=== PATIENT | female | born 1980 | race Caucasian/White ===

== ENCOUNTER 2017-10-28 16:48 | Emergency (ER) | payer OTHER, SELFPAY ==
[2017-10-28] VITALS (8 sets, daily range): BP systolic 135–179; BP diastolic 95–125; PULSE 71–91; RESP 12–18; TEMP 36.8; O2SAT 96–100; BMI 29.2
[2017-10-28 17:14] LABS: Absolute Lymphocyte Count 2.18 X10^3/ul (0.83-4.51); Basophil# 0.02 X10^3/uL; Basophil% 0.2 % (0-1); Eosinophil# 0.19 X10^3/uL; Eosinophils% 1.7 % (0-5); Hematocrit 40.1 % (37-47); Hemoglobin 13.9 g/dl (12.0-15.0); Lymphocyte # 2.18 X10^3/ul (4.0); Lymphocyte % 19.9 % (19-41); Mean Corp Hgb Conc 34.7 g/gl (32-36); Mean Corpuscular Hgb 30.4 pg (27.0-32.0); Mean Corpuscular Volume 87.7 fL (81-99); Mean Platelet Vol. 9.6 fl (6.2-12.0); Monocyte# 0.56 X10^3/uL; Monocyte% 5.1 % (0-10); Neutrophil % 72.8 % (47-70); Platelet Count 327 K/mm3 (150-450); RBC Distribution Width CV 11.5 % (11.6-14.6); RBC Distribution Width SD 36.7 fl (35.1-43.9); Red Blood Count 4.57 M/mm3 (4.2-5.4)
[2017-10-28 17:16] LABS: POSITIVE COUNT NO; POSITIVE DIFFERENTIAL NO; POSITIVE MORPHOLOGY NO
[2017-10-28 17:45] LABS: Anion Gap 11 (5-15); BUN 20 mg/dL (7-18); BUN/Creat Ratio 18.9 RATIO (10-20); Calcium,Total 8.8 mg/dL (8.5-10.1); Chloride 106 mmol/L (98-107); Creatinine, Serum 1.06 mg/dL (0.55-1.02); EST Glomerular Filtration Rate 62 mL/min (>60); Est Glom Filt Rate - Afr Amer 75 mL/min (>60); Estimated Creatinine Clearance 63.36 ml/min; Glucose 94 mg/dL (74-106); Potassium 3.7 mmol/L (3.5-5.1); Sodium Level 137 mmol/L (136-145)
[2017-10-28] MEDS: Ipratropium/Albuterol Sulfate 3 ML AMPUL.NEB INHALATION (19:39)
[2017-10-28 20:11] LABS: D-Dimer Quantitative (DVT/PE) < 0.27 FEU/ug/m (0.27-0.49)
--- NOTE | 2017-10-28 21:23 | ED.DCSUM_ITS ---
- ER Visit Summary Date of Service: 10/28/17 Chief Complaint: Chest pain, short of breath History of Present Illness: The patient is a 37 F with chest tightness and mild shortness of breath in the past 4 days. Symptoms do seem to be worse with exertion. She denies cough or wheezing. No significant cardiac risk factors other than long-standing hypertension. She does stress test at age 23 that was normal. No DVT or PE risk factors. Physical Examination: Blood pressure is 140/95, temperature 98.3, heart rate 84 , respiratory rate 14, pulse ox 98% on room air. Patient sitting upright in bed no acute distress. Heart is regular rate and rhythm. Lung sounds are clear. She has very minimal chest wall tenderness. Abdomen is soft nontender. Lower extremity examination was no calf tenderness or edema. Test Results: EKG is sinus tach at 102 with no sign of acute ischemia. Portable chest x-ray normal. CBC and chemistry studies unremarkable. Troponin negative. D-dimer negative. Emergency Department Course and Treatment: Patient was given a DuoNeb treatment here. On repeat evaluation she states she has had mild improvement with that. Patient has had ongoing symptoms for 4 days and prefers not to stay in the hospital for further testing. I will speak with her primary care physician to help arrange close follow-up. Treatment Plan: [] Disposition: Discharge Impression: Atypical chest pain This note was generated with [employer] dictation software. It may contain incorrect words, spelling, and punctuation that were not noted in review of the chart prior to signing ED Disposition - Plan for ED Patient: Chief Complaint: Chest Pain Referrals: Araseli Terry MD [Primary Care Provider] -
--- NOTE | 2017-10-28 21:23 | ED.DEP ---
ED Disposition - Plan for ED Patient: Disposition: Home or Assisted Living Chief Complaint: Chest Pain Instructions: ED Chest Pain Atypical Unkn Cause Referrals: Araseli Terry MD [Primary Care Provider] - As soon as possible
== END 2017-10-28 22:03 | disposition home or self-care (01) ==
PROVIDERS: Emergency Provider Emergency Medicine; Family Provider Internal Medicine; PCP Internal Medicine
DX: R07.89 Other chest pain (principal); I10 Essential (primary) hypertension
CPT/HCPCS: 71045; 80048; 84484; 85025; 85379; 93005; 94640; 99284; A4216

== ENCOUNTER → 2018-01-07 09:38 | Outpatient (CLI) | payer OTHER, SELFPAY ==
--- NOTE | 2018-01-07 09:44 | ECHOD_ITS ---
Reason For Study: hypertension Procedure This was a 2D Doppler, Color Flow transthoracic echocardiogram. Exam performed in department. Left Ventricle Normal LV size. Left ventricular systolic function is normal. The estimated ejection fraction is 65 %. No regional wall motion abnormalities noted. Right Ventricle Normal RV size. Normal systolic function. Atria Normal left atrium. Normal right atrium. Mitral Valve Normal mitral valve. Tricuspid Valve Normal tricuspid valve. Mild tricuspid valve insufficiency. Pulmonary artery systolic pressure is 26 mmHg. Aortic Valve Normal aortic valve. Trisinus/trileaflet aortic valve. Pulmonic Valve Normal pulmonic valve. Great Vessels Normal aortic root. The pulmonary artery is normal size. Normal inferior vena cava. Pericardium/Pleural No pericardial effusion. MMode/2D Measurements & Calculations LVIDd: 5.0 cm IVSd: 0.90 cm Ao root diam: 3.0 cm LVIDs: 3.2 cm LVPWd: 0.96 cm RVDd: 2.6 cm FS: 36.7 % LAV(MOD-bp): 55.1 ml LA A4 area: 18.8 cm2 LA dimension(2D): 3.3 cm LAV(MOD-bp) Indexed: 30.1 ml/m2 LAV(MOD-sp2): 46.5 ml LAV(MOD-sp4): 60.1 ml RA A4 area: 11.4 cm2 Time Measurements MV dec time: 0.22 sec Doppler Measurements & Calculations MV E max buster: 105.3 cm/sec Lat Peak E' Buster: 19.0 cm/sec Med Peak E' Buster: 14.5 cm/sec MV A max buster: 61.8 cm/sec E/E' lat: 5.5 E/E' med: 7.2 MV E/A: 1.7 Ao V2 max: 147.1 cm/sec LV V1 max: 117.7 cm/sec PA V2 max: 105.0 cm/sec Ao max P.7 mmHg LV V1 max P.5 mmHg TR max buster: 237.0 cm/sec TR max P.5 mmHg Interpretation Summary Normal LV size. Left ventricular systolic function is normal. The estimated ejection fraction is 65 %. Pulmonary artery systolic pressure is 26 mmHg. The global longitudinal strain = -19.5 % (normal). Ordering Physician: Cordell Nidaye Referring Physician: Araseli Terry Performed By: Char Worrell RDCS, RVT
== END ==
PROVIDERS: Family Provider Internal Medicine; PCP Internal Medicine; Referring Provider Internal Medicine Cardiovascular Disease; Visit Provider Internal Medicine Cardiovascular Disease
DX: I10 Essential (primary) hypertension (principal)
CPT/HCPCS: 93306

== ENCOUNTER → 2018-01-13 16:26 | Outpatient (CLI) | payer OTHER, SELFPAY ==
[2017-12-30 08:37] VITALS: BMI 29.3
[2018-01-13 17:45] LABS: BUN 14 mg/dL (7-18); Glucose 83 mg/dL (74-106)
[2018-01-13 17:46] LABS: Anion Gap 5 (5-15); BUN/Creat Ratio 17.4 RATIO (10-20); Calcium,Total 8.9 mg/dL (8.5-10.1); Chloride 104 mmol/L (98-107); EST Glomerular Filtration Rate 85 mL/min (>60); Est Glom Filt Rate - Afr Amer 103 mL/min (>60); Potassium 3.6 mmol/L (3.5-5.1); Sodium Level 138 mmol/L (136-145); Thyroid Stim Hormone (TSH) 1.42 uIU/mL (0.358-3.74)
== END ==
PROVIDERS: Family Provider Internal Medicine; PCP Internal Medicine; Referring Provider Internal Medicine Cardiovascular Disease; Visit Provider Internal Medicine Cardiovascular Disease
DX: I10 Essential (primary) hypertension (principal); E78.5 Hyperlipidemia, unspecified
CPT/HCPCS: 36415; 80048; 83735; 84443

== ENCOUNTER → 2018-01-29 15:27 | Outpatient (CLI) | payer OTHER, SELFPAY ==
[2018-01-29 14:36] VITALS: BMI 29.3
--- NOTE | 2018-01-29 15:30 | CT_ITS ---
STUDY: CTA OF THE ABDOMINAL AORTA REASON FOR EXAM: Female, 37 years old. Hypertension. Question adrenal abnormality. RADIATION DOSAGE (If Supplied By Facility): CTDIvol = ( 18.37 ) mGy, DLP = ( 306.46 ) mGycm TECHNIQUE: Axial CT angiography multi-detector data acquisition was obtained from the diaphragm to the midpelvis following intravenous administration of 100 ml of Isovue 370 contrast. Axial images and MIP images were reconstructed from the axial data set. Post-processing of the angiographic images was performed, with multiplanar reformation and 3D reconstruction. Individualized dose optimization techniques were used for this CT. TECHNICAL QUALITY: Good COMPARISON: None. Descriptors of Narrowing: None (0%) Mild (< 50%) Moderate (50-70%) Severe (70-90%) Subtotal/Total Occlusion (90-100%) Non-Evaluable (technically non-diagnostic FINDINGS: Abdominal aorta: There is very minimal atherosclerotic plaque of the abdominal aorta without stenosis aneurysm or dissection. Celiac and superior mesenteric arteries: No demonstrated narrowing. Inferior mesenteric artery: No demonstrated narrowing. Right renal artery(arteries): No demonstrated narrowing. Left renal artery(arteries): No demonstrated narrowing. Right common iliac artery: No demonstrated narrowing. Right external iliac artery: No demonstrated narrowing. Right internal iliac artery: No demonstrated narrowing. Left common iliac artery: No demonstrated narrowing. Left external iliac artery: No demonstrated narrowing. Left internal iliac artery: No demonstrated narrowing. The lung bases are clear. The heart is normal in size. Normal liver. Normal gallbladder and biliary ductal system. Normal spleen there is a 9 mm splenule along the anterior edge of the spleen as well as a 1.1 cm splenule in the lower hilum. Normal pancreas. Both adrenal glands are normal in size contour and enhancement. Normal kidneys. Normal IVC and retroperitoneum. Normal stomach. Normal visualized small bowel. Normal visualized colon. Normal appendix. An IUD is seen within the fundus of the uterus. The lower uterus is not included. There is no visualized adnexal mass. The dome of the bladder appears normal. There is no free air or free fluid within the peritoneal cavity. There is no umbilical hernia of omental fat. The abdominal wall is otherwise unremarkable. Normal lumbar spine. CT/CTA Abdomen W/WO Contrast IMPRESSION: 1. Minimal atherosclerotic changes of the infrarenal abdominal aorta. No aneurysm or dissection. The remainder of the intra-abdominal and pelvic vasculature are unremarkable. 2. Normal appearance of the adrenal glands. 3. IUD. Electronically Signed: Sergo Blanchard DO at 16:13 EST Tel [phone], Service support ,
== END ==
PROVIDERS: Family Provider Internal Medicine; PCP Internal Medicine; Referring Provider Internal Medicine Cardiovascular Disease; Visit Provider Internal Medicine Cardiovascular Disease
DX: I10 Essential (primary) hypertension (principal)
CPT/HCPCS: 74175; Q9967

== ENCOUNTER → 2018-08-07 09:55 | Outpatient (CLI) | payer OTHER, SELFPAY ==
[2018-08-06 14:18] VITALS: BMI 30.9
== END ==
PROVIDERS: Family Provider Internal Medicine; PCP Internal Medicine; Referring Provider Internal Medicine Cardiovascular Disease; Visit Provider Internal Medicine Cardiovascular Disease
DX: I10 Essential (primary) hypertension (principal)
CPT/HCPCS: 93788

== ENCOUNTER → 2018-11-05 14:14 | Outpatient (CLI) | payer OTHER, SELFPAY ==
[2018-11-05 13:12] VITALS: BMI 30.7
[2018-11-05 16:55] LABS: Anion Gap 8 (5-15); BUN 14 mg/dL (7-18); BUN/Creat Ratio 14.8 RATIO (10-20); Calcium,Total 8.9 mg/dL (8.5-10.1); Chloride 105 mmol/L (98-107); Creatinine, Serum 0.95 mg/dL (0.55-1.02); EST Glomerular Filtration Rate 70 mL/min (>60); Est Glom Filt Rate - Afr Amer 85 mL/min (>60); Glucose 89 mg/dL (74-106); Magnesium 2.3 mg/dL (1.6-2.6); Potassium 3.7 mmol/L (3.5-5.1); Sodium Level 142 mmol/L (136-145)
== END ==
PROVIDERS: Family Provider Internal Medicine; PCP Internal Medicine; Referring Provider Physician Assistant Medical; Visit Provider Physician Assistant Medical
DX: I10 Essential (primary) hypertension (principal); R25.2 Cramp and spasm
CPT/HCPCS: 36415; 80048; 83735

== ENCOUNTER → 2022-01-16 | Outpatient (CLI) | payer OTHER, SELFPAY ==
--- NOTE | 2022-01-16 08:43 | RDU_ITS ---
Reason For Study: HTN Right Renal Artery Left Renal Artery Right renal artery ostium 94.1/29 Left renal artery ostium 67.7/24.8 RSV/EDV. PSV/EDV. Right renal artery proximal Left renal artery proximal PSV/EDV 114.3/41.3 PSV/EDV. 72.2/24.5 . Right renal artery mid 90.6/30.3 Left renal artery mid 62.7/24.5 PSV/EDV. PSV/EDV . Right renal artery distal 130.8/43 Left renal artery distal 90.4/38.6 PSV/EDV. PSV/EDV. Right RAR 1.46. Left RAR 1.01. Right Renal Parenchyma Left Renal Parenchyma Upper Pole Medula 25.1/10.2 Left upper pole medulla 39.4/15.2 PSV/EDV. PSV/EDV . Right upper pole medulla EDR 0.4 . Left upper pole medulla EDR 0.4 . Right upper pole medulla R.I. Left upper pole medulla R.I. 0.61 . 0.59 . UP Cortex 27.3/10.9 PSV/EDV. Upper Jorge Cortx 22.3/9.7 PSV/EDV. Left upper pole cortex EDR 0.4 . Right upper pole cortex EDR 0.4 . Left upper pole cortex R.I. 0.60 . Right upper pole cortex R.I. 0.57 . Left lower Pole medulla 25.1/11.6 Right lower Pole medulla 24.5/9.7 PSV/EDV . PSV/EDV . Left lower pole medulla EDR 0.5 . Right lower pole medulla EDR 0.4 . Left lower pole medulla R.I. 0.54 . Right lower pole medulla R.I. Lower Pole Cortx 19/7.9 PSV/EDV. 0.61 . Left lower pole cortex EDR 0.4 . Lower Pole Cortex 13/5.8 PSV/EDV. Left lower pole cortex R.I. 0.58 . Right lower pole cortex EDR 0.4 . Left Renal Hilar Right lower pole cortex R.I. 0.55 . LT Hilar avg 68.3/30.4 PSV/EDV . Right Renal Hilar Left hilar acceleration time 50 Right Hilar avg 96.1/35.8 PSV/EDV. m/sec. Right hilar acceleration time 50 Left Renal Dimensions m/sec. Left kidney size 10.67 cm . Right Renal Dimensions Left cortical dimension 1.41 cm . Right kidney size 14.17 cm . Right cortical dimension 1.34 cm . Aorta Proximal abdominal aorta 1.45 x 1.45 cm . Proximal abdominal aorta peak systolic velocity is 89.7 cm/sec . Distal abdominal aorta 1.11 x 1.12 cm . Distal abdominal aorta peak systolic velocity is 78.7 cm/sec . VL/Renal Artery Duplex Ultrasound Interpretation Summary Right renal artery patent, no evidence of stenosis Left renal artery patent, no evidence of stenosis Right renal vein patent Left renal vein patent The right kidney is normal in size. The left kidney is normal in size. Ordering Physician: Tierra Andrade Referring Physician: Araseli Terry M.D. Performed By: Tasia Medrano RVT
[2022-01-16 10:57] LABS: Anion Gap 4 (5-15); BUN 20 mg/dL (7-18); BUN/Creat Ratio 19.4 RATIO (10-20); Chloride 102 mmol/L (98-107); Creatinine, Serum 1.03 mg/dL (0.55-1.02); EST Glomerular Filtration Rate 63 mL/min (>60); Est Glom Filt Rate - Afr Amer 76 mL/min (>60); Glucose 84 mg/dL (74-106); Potassium 3.6 mmol/L (3.5-5.1); Sodium Level 137 mmol/L (136-145)
== END | disposition home or self-care (01) ==
PROVIDERS: PCP Internal Medicine; Referring Provider Physician Assistant Medical; Visit Provider Physician Assistant Medical
DX: I10 Essential (primary) hypertension (principal); E78.5 Hyperlipidemia, unspecified
CPT/HCPCS: 36415; 80048; 93975

== ENCOUNTER → 2022-04-27 | Outpatient (CLI) | payer OTHER, SELFPAY ==
[2022-04-27 09:04] LABS: Anion Gap 5 (5-15); BUN 19 mg/dL (7-18); BUN/Creat Ratio 19.6 RATIO (10-20); Calcium,Total 9.5 mg/dL (8.5-10.1); Chloride 101 mmol/L (98-107); Creatinine, Serum 0.97 mg/dL (0.55-1.02); EST Glomerular Filtration Rate 67 mL/min (>60); Est Glom Filt Rate - Afr Amer 81 mL/min (>60); Glucose 86 mg/dL (74-106); Potassium 3.3 mmol/L (3.5-5.1); Sodium Level 136 mmol/L (136-145)
== END | disposition home or self-care (01) ==
LOC: LAB 08:02
PROVIDERS: PCP Internal Medicine; Visit Provider Physician Assistant Medical
DX: I10 Essential (primary) hypertension (principal)
CPT/HCPCS: 36415; 80048

== ENCOUNTER → 2022-05-22 | Outpatient (CLI) | payer OTHER, SELFPAY ==
[2022-05-22 14:21] LABS: Anion Gap 7 (5-15); BUN 17 mg/dL (7-18); Calcium,Total 9.3 mg/dL (8.5-10.1); Chloride 101 mmol/L (98-107); EST Glomerular Filtration Rate 65 mL/min (>60); Est Glom Filt Rate - Afr Amer 79 mL/min (>60); Glucose 87 mg/dL (74-106); Potassium 3.3 mmol/L (3.5-5.1); Sodium Level 134 mmol/L (136-145)
== END | disposition home or self-care (01) ==
LOC: LAB 12:27
PROVIDERS: PCP Internal Medicine; Referring Provider Physician Assistant Medical; Visit Provider Physician Assistant Medical
DX: I10 Essential (primary) hypertension (principal)
CPT/HCPCS: 36415; 80048

== ENCOUNTER → 2022-06-08 | Outpatient (CLI) | payer OTHER, SELFPAY ==
[2022-06-08 08:01] LABS: Anion Gap 1 (5-15); BUN 27 mg/dL (7-18); BUN/Creat Ratio 28.2 RATIO (10-20); Calcium,Total 8.9 mg/dL (8.5-10.1); Chloride 108 mmol/L (98-107); Creatinine, Serum 0.96 mg/dL (0.55-1.02); EST Glomerular Filtration Rate 68 mL/min (>60); Est Glom Filt Rate - Afr Amer 83 mL/min (>60); Glucose 105 mg/dL (74-106); Potassium 3.7 mmol/L (3.5-5.1); Sodium Level 136 mmol/L (136-145)
== END | disposition home or self-care (01) ==
LOC: LAB 07:03
PROVIDERS: PCP Internal Medicine; Referring Provider Physician Assistant Medical; Visit Provider Physician Assistant Medical
DX: I10 Essential (primary) hypertension (principal)
CPT/HCPCS: 36415; 80048

== ENCOUNTER → 2022-11-13 | Outpatient (CLI) | payer OTHER, SELFPAY ==
[2022-11-13 10:39] LABS: AST(SGOT) 28 U/L (15-37); Alanine Aminotransfer ALT/SGPT 38 U/L (13-56); Albumin, Serum 3.9 g/dL (3.2-5.0); Alkaline Phosphatase 98 U/L (45-117); Bilirubin, Direct 0.12 mg/dL (0.00-0.30); Cholesterol 243 mg/dL (200); Globulin 3.8 g/dL (2.2-4.2); High Density Lipoprotein 80 mg/dL; Protein, Total 7.7 g/dL (6.4-8.2); Triglycerides 133 mg/dL; Very Low Density Lipoprotein 27 mg/dL (5-40)
== END | disposition home or self-care (01) ==
LOC: LAB 09:25
PROVIDERS: PCP Internal Medicine; Referring Provider Internal Medicine Cardiovascular Disease; Visit Provider Internal Medicine Cardiovascular Disease
DX: E78.5 Hyperlipidemia, unspecified (principal); I10 Essential (primary) hypertension
CPT/HCPCS: 36415; 80061; 80076

== ENCOUNTER → 2022-11-16 | Outpatient (CLI) | payer OTHER, SELFPAY ==
[2022-11-16 08:22] LABS: AST(SGOT) 22 U/L (15-37); Alanine Aminotransfer ALT/SGPT 36 U/L (13-56); Alkaline Phosphatase 91 U/L (45-117); Bilirubin, Direct 0.12 mg/dL (0.00-0.30); Cholesterol 240 mg/dL (200); Globulin 3.7 g/dL (2.2-4.2); High Density Lipoprotein 85 mg/dL; Protein, Total 7.7 g/dL (6.4-8.2); Triglycerides 85 mg/dL; Very Low Density Lipoprotein 17 mg/dL (5-40)
== END | disposition home or self-care (01) ==
LOC: LAB 07:03
PROVIDERS: PCP Internal Medicine; Referring Provider Internal Medicine Cardiovascular Disease; Visit Provider Internal Medicine Cardiovascular Disease
DX: E78.00 Pure hypercholesterolemia, unspecified (principal)
CPT/HCPCS: 36415; 80061; 80076

== ENCOUNTER → 2022-12-20 | Outpatient (CLI) | payer SELFPAY ==
--- NOTE | 2022-12-20 06:51 | CT_ITS ---
STUDY: CT CHEST WITHOUT CONTRAST REASON FOR EXAM: Female, 42 years old. Hyperlipidemia, unspecified LIMITED CT OVER READ ONLY RADIATION DOSAGE (If Supplied By Facility): CTDIvol = ( 12.19 ) mGy, DLP = ( 195.04 ) mGycm TECHNIQUE: Transaxial imaging was performed without the administration of intravenous contrast material. Individualized dose optimization techniques were used for this CT. COMPARISON: No relevant priors. FINDINGS: CHEST The lungs are normal. There is no demonstrated pleural abnormality. Normal heart and pericardium. No coronary artery calcification. Normal mediastinum. Normal hilar regions. Normal unenhanced pulmonary arteries. Normal aorta arch and descending thoracic aorta. Normal osseous structures. There is no demonstrated abnormality of the visualized upper abdomen. CT/Limited Chest CT Cardiac Only IMPRESSION: Normal unenhanced CT chest T abdomen examination. Electronically Signed: Lazaro Oliver MD at 14:16 EDT ,
--- NOTE | 2022-12-20 07:44 | CA.SCORE ---
Calcium Scoring Date of Study:: 12/20/22 Indications Indications: Hyperlipidemia Coronary Calcium Scoring: High-resolution Computed Tomographic imaging of the chest was performed on [12/20/22 ], with particular attention paid to the coronary arteries. Images from the examination were analyzed for the presence and extent of coronary artery calcification , using coronary calcium quantification software. The patient tolerated the procedure well and there were no complications. The results of the coronary calcification analysis are provided below. Findings Coronary Artery Left Main (LM): 0 Left Anterior Descending (LAD): 0 Left Circumflex (LCX): 0 Right Coronary Artery (RCA): 0 Total Agatston Score: 0 Percentile Rankin% Calcium Scoring Interpretation: Different methods to categorize the overall amount of coronary plaque. Overall amount CAC SIS Visual of coronary plaque P1 Mild -100 <2 1-2 vessels with mild amount of plaque P2 Moderate 101-300 3-4 1-2 vessels with moderate amount, 3 vessels with mild amount of plaque P3 Severe 301-999 5-7 3 vessels with moderate amount, 1 vessel with severe amount of plaque P4 Extensive >1000 >8 2-3 vessels with severe amount of plaque Conclusion: No significant atherosclerotic plaquing noted.
== END | disposition home or self-care (01) ==
LOC: CT 06:51
PROVIDERS: PCP Internal Medicine; Referring Provider Internal Medicine Cardiovascular Disease; Visit Provider Internal Medicine Cardiovascular Disease
DX: I10 Essential (primary) hypertension (principal); E78.5 Hyperlipidemia, unspecified
CPT/HCPCS: 75571; 76380

== ENCOUNTER → 2023-11-14 | Outpatient (CLI) | payer OTHER, SELFPAY ==
[2023-11-14 17:37] LABS: AST(SGOT) 25 U/L (15-37); Alanine Aminotransfer ALT/SGPT 36 U/L (13-56); Albumin, Serum 4.1 g/dL (3.2-5.0); Alkaline Phosphatase 101 U/L (45-117); Bilirubin, Direct 0.07 mg/dL (0.00-0.30); Cholesterol 253 mg/dL (200); Globulin 3.6 g/dL (2.2-4.2); High Density Lipoprotein 81 mg/dL; Protein, Total 7.7 g/dL (6.4-8.2); Triglycerides 219 mg/dL; Very Low Density Lipoprotein 44 mg/dL (5-40)
== END | disposition home or self-care (01) ==
LOC: LAB 16:16
PROVIDERS: PCP Internal Medicine; Referring Provider Physician Assistant Medical; Visit Provider Physician Assistant Medical
DX: E78.5 Hyperlipidemia, unspecified (principal); I10 Essential (primary) hypertension
CPT/HCPCS: 36415; 80061; 80076

== ENCOUNTER 2024-01-05 04:32 | Emergency (ER) | payer OTHER, SELFPAY ==
[2024-01-05 04:33] VITALS: BP 176/97; PULSE 87; RESP 20; TEMP 36.6; O2SAT 100; BMI 33.3
[2024-01-05 04:37] VITALS: BP 176/97; PULSE 90; RESP 20; TEMP 36.6; O2SAT 100
[2024-01-05] MEDS: Ondansetron 4 MG/2 ML Vial IV (04:48)
[2024-01-05] MEDS: Ketorolac 30 MG/ML Syringe IV (04:48)
[2024-01-05] MEDS: Morphine 4 MG/ML Syringe IV (04:49)
[2024-01-05 04:56] LABS: Mucous, Urine 0 SEEN /hpf (<or=2+)
[2024-01-05 04:57] LABS: Absolute Neutrophil Count 12.5 X10^3/uL (2.0-7.7); Basophil# 0.06 X10^3/uL; Basophil% 0.4 % (0-1); Eosinophils% 0.7 % (0-5); Hematocrit 41.9 % (37-47); Hemoglobin 14.5 g/dL (12.0-15.0); Lymphocyte % 8.2 % (19-41); Mean Corp Hgb Conc 34.6 g/dL (32-36); Mean Corpuscular Hgb 30.1 pg (27.0-32.0); Mean Corpuscular Volume 87.1 fL (81-99); Monocyte# 0.73 X10^3/uL; NRBC Flagged by Analyzer 0 % (0-5); Neutrophil # 12.46 X10^3/uL (2.7-7.7); Neutrophil % 85.3 % (47-70); Platelet Count 395 K/mm3 (150-450); RBC Distribution Width CV 11.1 % (11.6-14.6); RBC Distribution Width SD 35.6 fl (35.1-43.9); Red Blood Count 4.81 M/mm3 (4.2-5.4); White Blood Count 14.6 K/mm3 (4.4-11.0)
[2024-01-05 04:58] LABS: Color, Urine Amber (Yellow); Glucose, Dipstick Normal (Normal); Ketone-Dipstick 5 mg/dl (Negative); Leukocyte Esterase-Dipstick 500 /ul (Negative); Nitrite-Dipstick Positive (Negative); Occult Blood-Urine 250 /ul (Negative); Protein-Dipstick 100 mg/dl (Negative); Specific Gravity, Urine 1.015 (1.002-1.030); Urine Bilirubin Dipstick Negative (Negative); Urine Clarity Turbid (Clear); Urine Urobilinogen 1 mg/dl (Normal)
[2024-01-05 05:20] LABS: Anion Gap 9 (5-15); BUN 15 mg/dL (7-18); BUN/Creat Ratio 13.6 RATIO (10-20); Calcium,Total 9.8 mg/dL (8.5-10.1); Chloride 104 mmol/L (98-107); EST Glomerular Filtration Rate 58 mL/min (>60); Est Glom Filt Rate - Afr Amer 70 mL/min (>60); Estimated Creatinine Clearance 71.58 ml/min; Glucose 156 mg/dL (74-106); Potassium 3.9 mmol/L (3.5-5.1); Sodium Level 136 mmol/L (136-145)
[2024-01-05 05:26] LABS: Internal QC Validated? YES +Cl - CLEAR BKGD; Pregnancy, Serum, hCG Quali. NEGATIVE Negative
[2024-01-05 05:27] LABS: Bacteria 2+ /hpf (None Seen); Red Blood Cells-Urine > 100 SEEN /hpf (0-5); Squamous Epithelial Cells - UA 0-5 SEEN /hpf (5-10); Transitional Epithelial - Ur 0-5 SEEN /hpf (0-5); White Blood Cells 25-50 SEEN /hpf (0-5)
[2024-01-05 05:37] VITALS: BP 130/80; PULSE 77; RESP 18; TEMP 36.8; O2SAT 95
[2024-01-05] MEDS: Ceftriaxone 1 GM/50 ML BAG IV (05:51)
[2024-01-05 06:00] VITALS: BP 131/88; PULSE 77; RESP 16; TEMP 36.8; O2SAT 96
[2024-01-05 06:02] VITALS: BP 131/88; PULSE 75; RESP 16; TEMP 36.8; O2SAT 96
== END 2024-01-05 06:43 | disposition home or self-care (01) ==
LOC: ED 05:56
PROVIDERS: Emergency Provider Emergency Medicine; Visit Provider Emergency Medicine
DX: N39.0 Urinary tract infection, site not specified (principal); I10 Essential (primary) hypertension; E78.5 Hyperlipidemia, unspecified
CPT/HCPCS: 74176; 80048; 81001; 84703; 85025; 87077; 87086; 87088; 87186; 96365; 96375; 99283; J7050; A4216; J2405

== ENCOUNTER 2024-02-05 13:48 | Emergency (ER) | payer OTHER, SELFPAY ==
[2024-02-05 13:48] VITALS: BP 162/113; PULSE 108; RESP 18; TEMP 36.6; O2SAT 96; BMI 33.5
--- NOTE | 2024-02-05 14:33 | CT_ITS ---
STUDY: CT ABDOMEN AND PELVIS WITH CONTRAST REASON FOR EXAM: Female, 43 years old. Abdominal pain RADIATION DOSAGE (If Supplied By Facility): CTDIvol = ( 14.48 ) mGy, DLP = ( 949.78 ) mGycm TECHNIQUE: Transaxial images were obtained from the dome of the diaphragm to the symphysis pubis without oral contrast. IV 100mL Isovue-370 was administered. Sagittal and coronal images were reconstructed. Individualized dose optimization techniques were used for this CT. COMPARISON: January 05, 2024 FINDINGS: The visualized lung bases are unremarkable. The visualized portions of the heart are within normal limits. Liver is normal in size and homogeneous attenuation. There is a very small hypoattenuated density in the right lobe of the liver which appears solid based on Hounsfield measurements most likely representing hemangioma.. This is not as clearly visualized on prior exam due to volume averaging Normal gallbladder and extrahepatic biliary system. Normal spleen. Normal pancreas. Normal bilateral adrenal glands. Normal right kidney. Normal left kidney. Normal visualized stomach. Normal small intestine. Normal colon. The appendix is visualized and appears normal. Minor atherosclerotic change of the aorta without evidence for aneurysm. Normal inferior vena cava. Normal retroperitoneum. Poorly distended thick walled bladder likely of no significance Normal abdominal wall. Normal osseous structures. CT/Abdomen/Pelvis W IV Cont ONLY IMPRESSION: Question small hemangioma within the liver. This may be further assessed with MRI if clinically warranted No acute abnormalities identified unchanged since prior study Electronically Signed: Zafar Magana MD at 16:16 EST ,
--- NOTE | 2024-02-05 14:37 | ED.VIS.FEGU ---
HPI HPI - Female History of Present Illness Chief Complaint: Flank Pain Narrative Narrative: Chief complaint and HPI: Suprapubic abdominal pain and back pain. 43-year-old female with history of recurrent UTI presents for evaluation of suprapubic abdominal pain as well as back pain. History taken by patient as well as medical chart. Patient presented to our emergency department in December for similar complaint. At that time she had laboratory workup that showed leukocytosis as well as UTI. Her CT abdomen pelvis was negative. She was discharged home on ciprofloxacin for UTI. Patient states her symptoms improved after week. She states on 01/28 she developed similar symptoms and was seen by her PCP. She was diagnosed with a UTI however culture was negative. She was placed on ciprofl she was prescribed Keflex on 12/03. Patient is officially taken 2 days worth. Oxacin. Patient states her symptoms did not improve and therefore patient states that she has a follow-up appointment with urology. She has yet to establish with them. She states she has continued to have suprapubic abdominal pain as well as back pain. Endorses some nausea. No vomiting. Denies any fever, chills, shortness of breath, chest pain, diarrhea, constipation. Denies any vaginal discharge or vaginal pain. Menstrual cycles are regular. No concern for STI. Patient has been taking Azo and Tylenol for pain. Review of systems: See HPI Medications: As listed on the chart Allergies: As listed on the chart PFSH: Per chart Vital signs: As listed on the chart. Reviewed. Physical exam: Gen: A&O x3, NAD Head: Normocephalic, atraumatic Eyes: No sclera icterus, conjunctiva clear ENT: Moist mucous membranes Neck: Trachea midline, No JVD CV: RRR, no murmurs, no peripheral edema Resp: Lungs CTA BL, no w/r/c GI: Abd soft, non-distended, mild tenderness to palpation suprapubically, no r/r/g : No CVA tenderness Musc: Full ROM, no deformity Skin: Warm, dry Neuro: Alert, oriented, grossly intact, sensation intact Psych: Cooperative, appropriate mood and affect [facility] Medical History Dyslipidemia Melanocytic nevus of left shoulder Acne vulgaris Essential (primary) hypertension Home Medications ?Medication ?Instructions ?Recorded ?Last Taken ?Type bupropion HCl 150 mg 24 hr tablet, 150 mg PO DAILY 09/26/21 Unknown History extended release cranberry fruit concentrate 250 mg 250 mg PO DAILY 09/26/21 Unknown History chewable tablet (Azo Cranberry) multivitamin 1 tab PO DAILY 09/26/21 Unknown History amlodipine 5 mg tablet 5 mg PO DAILY #90 tabs 05/29/23 Unknown Rx spironolactone 50 mg tablet 50 mg PO DAILY #90 tabs 05/29/23 Unknown Rx losartan 100 mg tablet 100 mg PO DAILY #90 tabs 09/25/23 Unknown Rx ciprofloxacin HCl 500 mg tablet 500 mg PO BID #14 TABLETS 01/05/24 Unknown Rx Allergy/AdvReac Type Severity Reaction Status Date / Time nitrofurantoin (From Allergy Rash Verified 02/05/24 13:48 Macrobid) Family History Father Myocardial infarction early 40's Diabetes Grandfather Myocardial infarction early 40's Grandmother Diabetes Surgical History [place] teeth extracted Social History (Updated 02/05/24 @ 14:16 by Kae Neely) household members: spouse and family housing: house current occupational status: employed Smoking Status: Never smoker alcohol intake: current alcohol intake frequency: a few times a month substance use type: does not use caffeine: Yes Type: coffee Number of servings: 1 EXAM Physical Exam Const Vital Signs: 02/05/24 13:48 02/05/24 15:48 Temperature 97.9 F Temperature Source Temporal Pulse Rate 108 H 69 Respiratory Rate 18 16 Blood Pressure 162/113 H 130/81 H Blood Pressure Mean 129 97 Pulse Ox 96 Oxygen Delivery Method Room Air MDM MDM MDM Narrative Medical decision making narrative: 43-year-old female with history of recurrent UTI presents for evaluation of suprapubic abdominal pain as well as back pain. Currently being treated for UTI on Keflex. On chart review, her urine culture from December resulted in E. coli. Was sensitive to ciprofloxacin which is what she was treated for. Current UTI had negative culture per patient. Differential diagnosis includes but is not limited to resistant UTI, pyelonephritis, nephrolithiasis, other intra-abdominal pathology. NS bolus, Zofran, Toradol ordered for pain. Abdominal pain workup ordered including CT abdomen pelvis. CBC without leukocytosis or anemia. Patient did have a leukocytosis on 01/04. CMP relatively unremarkable. Patient has baseline mild renal insufficiency with creatinine of 1.9. No transaminitis. Lipase unremarkable. Urine is not a clean specimen given her 10-25 squamous epithelial cells. No bacteria. Patient does have leuk esterase and positive nitrates. This is similar to her outpatient UA. Will send for culture. Patient is already on Keflex. Prior to this was treated with Cipro. She has been covered appropriately for E. coli based on her previous culture sensitivities. Urine negative. CT abdomen pelvis shows questionable small hemangioma within the liver. Otherwise no acute process. At this point in time, no clear etiology to explain patient's symptoms. May be secondary to a continuous UTI but hard to determine based on urine sample. She has no leukocytosis and symptoms have been ongoing for multiple weeks which makes pyelonephritis less likely. Patient has been on antibiotics. Patient was updated of all results and the plan to discharge home. Follow-up with PCP and her appointment with urology. Return precautions explained. Follow-up for hemangioma. She given understand the plan. Impression: 1. Questionable UTI 2. Incidental possible liver hemangioma Lab Data Labs: Laboratory Results - last 24 hr 02/05/24 02/05/24 14:45 14:55 WBC 10.2 RBC 4.75 Hgb 14.1 Hct 42.2 MCV 88.8 MCH 29.7 MCHC 33.4 RDW Std Deviation 37.2 RDW Coeff of Zaira 11.6 Plt Count 409 MPV 8.9 Immature Gran % (Auto) 0.400 Neut % (Auto) 76.5 H Lymph % (Auto) 15.5 L Rolette % (Auto) 5.9 Eos % (Auto) 1.2 Baso % (Auto) 0.5 Absolute Neuts (auto) 7.8 H Absolute Lymphs (auto) 1.58 Nucleated RBC % 0 Sodium 138 Potassium 3.9 Chloride 105 Carbon Dioxide 26.0 Anion Gap 7 BUN 17 Creatinine 1.09 H Estim Creat Clear Calc 72.54 Est GFR (MDRD) Af Amer 71 Est GFR (MDRD) Non-Af 58 L BUN/Creatinine Ratio 15.6 Glucose 93 Calcium 9.0 Total Bilirubin 0.40 AST 28 ALT 43 Alkaline Phosphatase 93 Total Protein 7.6 Albumin 4.1 Globulin 3.5 Albumin/Globulin Ratio 1.2 Lipase 27 Urine Color SEE COMMENT BELOW Urine Clarity Sl. Cloudy Urine pH 7.0 Ur Specific [place] 1.010 Urine Protein 30 H Urine Glucose (UA) Normal Urine Ketones Negative Urine Occult Blood Negative Urine Nitrite Positive H Urine Bilirubin 6 H Urine Urobilinogen 12 H Ur Leukocyte Esterase 100 H Urine RBC 0 SEEN Urine WBC 0-5 SEEN Ur Squamous Epith Cells 10-25 SEEN Urine Bacteria 0 SEEN Urine Mucus 0 SEEN Urine Test Negative Radiography Diagnostic Testing: Clinical Impression(s) from Imaging Studies Abdomen/Pelvis CT 02/05/24 14:33 IMPRESSION: Question small hemangioma within the liver. This may be further assessed with MRI if clinically warranted No acute abnormalities identified unchanged since prior study Electronically Signed: Zafar Magana MD at 16:16 EST Reading Location ID and State: [address] [place] [address] Tel , Service support , Discharge Plan Triage Chief Complaint: Flank Pain ED Provider: Lalito Lowery Dx/Rx/DC Orders Prescriptions: No Action bupropion HCl 150 mg tablet extended release 24 hr 150 mg PO DAILY multivitamin Tablet 1 tab PO DAILY Azo Cranberry 250 mg tablet,chewable 250 mg PO DAILY ciprofloxacin HCl 500 mg tablet 500 mg PO BID Qty: 14 0RF spironolactone 50 mg tablet 50 mg PO DAILY Qty: 90 3RF amlodipine 5 mg tablet 5 mg PO DAILY Qty: 90 3RF losartan 100 mg tablet 100 mg PO DAILY Qty: 90 3RF Primary Care Provider: Araseli Terry Referrals: Araseli Terry MD [Primary Care Provider] - Print Language: Nauruan
[2024-02-05] MEDS: Ondansetron 4 MG/2 ML Vial IV (14:44)
[2024-02-05] MEDS: Ketorolac 15 MG/ML Vial IV (14:44)
[2024-02-05] MEDS: 0.9% Normal Saline (1000mL) 1,000 ML 999 ML IV (14:44)
[2024-02-05 14:51] LABS: Absolute Lymphocyte Count 1.58 X10^3/uL (0.83-4.51); Absolute Neutrophil Count 7.8 X10^3/uL (2.0-7.7); Basophil# 0.05 X10^3/uL; Basophil% 0.5 % (0-1); Eosinophil# 0.12 X10^3/uL; Eosinophils% 1.2 % (0-5); Hematocrit 42.2 % (37-47); Hemoglobin 14.1 g/dL (12.0-15.0); Lymphocyte # 1.58 X10^3/ul (0.83-4.51); Lymphocyte % 15.5 % (19-41); Mean Corp Hgb Conc 33.4 g/dL (32-36); Mean Corpuscular Hgb 29.7 pg (27.0-32.0); Mean Corpuscular Volume 88.8 fL (81-99); Mean Platelet Vol. 8.9 fl (6.2-12.0); Monocyte% 5.9 % (0-10); NRBC Flagged by Analyzer 0 % (0-5); Neutrophil % 76.5 % (47-70); Platelet Count 409 K/mm3 (150-450); RBC Distribution Width CV 11.6 % (11.6-14.6); RBC Distribution Width SD 37.2 fl (35.1-43.9); Red Blood Count 4.75 M/mm3 (4.2-5.4); White Blood Count 10.2 K/mm3 (4.4-11.0)
[2024-02-05 15:03] LABS: Bacteria 0 SEEN /hpf (None Seen); Mucous, Urine 0 SEEN /hpf (<or=2+); Red Blood Cells-Urine 0 SEEN /hpf (0-5)
[2024-02-05 15:08] LABS: ALB/GLOB Ratio 1.2 RATIO (0.9-2.4); AST(SGOT) 28 U/L (15-37); Alanine Aminotransfer ALT/SGPT 43 U/L (13-56); Albumin, Serum 4.1 g/dL (3.2-5.0); Alkaline Phosphatase 93 U/L (45-117); Anion Gap 7 (5-15); BUN 17 mg/dL (7-18); BUN/Creat Ratio 15.6 RATIO (10-20); Chloride 105 mmol/L (98-107); Creatinine, Serum 1.09 mg/dL (0.55-1.02); EST Glomerular Filtration Rate 58 mL/min (>60); Est Glom Filt Rate - Afr Amer 71 mL/min (>60); Estimated Creatinine Clearance 72.54 ml/min; Globulin 3.5 g/dL (2.2-4.2); Glucose 93 mg/dL (74-106); Lipase 27 U/L (13-75); Potassium 3.9 mmol/L (3.5-5.1); Protein, Total 7.6 g/dL (6.4-8.2); Sodium Level 138 mmol/L (136-145)
[2024-02-05 15:19] LABS: Glucose, Dipstick Normal (Normal); Ketone-Dipstick Negative (Negative); Leukocyte Esterase-Dipstick 100 /ul (Negative); Nitrite-Dipstick Positive (Negative); Occult Blood-Urine Negative /ul (Negative); Protein-Dipstick 30 mg/dl (Negative); Urine Clarity Sl. Cloudy (Clear); Urine Urobilinogen 12 mg/dl (Normal)
[2024-02-05 15:25] LABS: Color, Urine SEE COMMENT BELOW (Yellow); Urine Bilirubin Dipstick 6 mg/dL (Negative)
[2024-02-05 15:28] LABS: Squamous Epithelial Cells - UA 10-25 SEEN /hpf (5-10); White Blood Cells 0-5 SEEN /hpf (0-5)
[2024-02-05 15:29] LABS: Internal QC Validated? YES +Cl - CLEAR BKGD; Pregnancy, Urine Negative Negative
[2024-02-05 15:48] VITALS: BP 130/81; PULSE 69; RESP 16
[2024-02-05 16:54] VITALS: BP 122/79; PULSE 81; RESP 14; TEMP 36.6; O2SAT 97
== END 2024-02-05 16:55 | disposition home or self-care (01) ==
PROVIDERS: Emergency Provider Surgery; PCP Internal Medicine; Referring Provider Surgery; Visit Provider Surgery
DX: R10.2 Pelvic and perineal pain (principal); M54.9 Dorsalgia, unspecified; I10 Essential (primary) hypertension; E78.5 Hyperlipidemia, unspecified; D18.00 Hemangioma unspecified site; Z87.440 Personal history of urinary (tract) infections
CPT/HCPCS: 74177; 80053; 81001; 81025; 83690; 85025; 87086; 96361; 96374; 96375; 99283; Q9967; A4216; J2405

== ENCOUNTER → 2024-03-12 | Outpatient (CLI) | payer OTHER, SELFPAY ==
[2024-03-12 17:46] LABS: Hemoglobin A1c 5.1 % (3.8-5.6)
== END | disposition home or self-care (01) ==
LOC: LAB 16:21
PROVIDERS: Referring Provider Physician Assistant Medical; Visit Provider Physician Assistant Medical
DX: E78.5 Hyperlipidemia, unspecified (principal); Z82.49 Family history of ischemic heart disease and other diseases of the circulatory system
CPT/HCPCS: 36415; 83036

== ENCOUNTER → 2024-08-02 | Outpatient (CLI) | payer OTHER, SELFPAY ==
[2024-08-02 15:18] LABS: Absolute Lymphocyte Count 1.45 X10^3/uL (0.83-4.51); Absolute Neutrophil Count 7.3 X10^3/uL (2.0-7.7); Basophil# 0.04 X10^3/uL; Basophil% 0.4 % (0-1); Eosinophil# 0.11 X10^3/uL; Eosinophils% 1.2 % (0-5); Hematocrit 41.2 % (37-47); Hemoglobin 13.8 g/dL (12.0-15.0); Lymphocyte # 1.45 X10^3/ul (0.83-4.51); Lymphocyte % 15.4 % (19-41); Mean Corp Hgb Conc 33.5 g/dL (32-36); Mean Corpuscular Hgb 30.1 pg (27.0-32.0); Mean Corpuscular Volume 89.8 fL (81-99); Mean Platelet Vol. 9.9 fl (6.2-12.0); Monocyte# 0.51 X10^3/uL; Monocyte% 5.4 % (0-10); NRBC Flagged by Analyzer 0 % (0-5); Neutrophil # 7.29 X10^3/uL (2.7-7.7); Neutrophil % 77.3 % (47-70); Platelet Count 411 K/mm3 (150-450); RBC Distribution Width CV 11.5 % (11.6-14.6); Red Blood Count 4.59 M/mm3 (4.2-5.4); White Blood Count 9.4 K/mm3 (4.4-11.0)
[2024-08-02 15:48] LABS: Anion Gap 14 (5-15); BUN 18 mg/dL (4-19); BUN/Creat Ratio 19.4 RATIO (10-20); Carbon Dioxide 21.1 mmol/L (21.0-32.0); Chloride 102 mmol/L (98-108); Creatinine, Serum 0.93 mg/dL (0.70-1.20); EST Glomerular Filtration Rate 79 (>60); Glucose 85 mg/dL (70-99); Potassium 4.3 mmol/L (3.3-5.1); Sodium Level 137 mmol/L (133-145)
[2024-08-02 15:53] LABS: AST(SGOT) 47 U/L (<=31); Alanine Aminotransfer ALT/SGPT 46 U/L (<=34); Albumin, Serum 4.8 g/dL (3.5-5.0); Alkaline Phosphatase 91 U/L (35-104); Bilirubin, Direct 0.16 mg/dL (0.00-0.30); Cholesterol 271 mg/dL (<=200); Globulin 2.5 g/dL (2.2-4.2); High Density Lipoprotein 76 mg/dL; Low Density Lipoprotein Calc. 162 mg/dL; Protein, Total 7.3 g/dL (5.9-8.4); Total Bilirubin 0.38 mg/dL (0.00-1.30); Triglycerides 166 mg/dL; Very Low Density Lipoprotein 33 mg/dL (5-40); cholesterol:hdl ratio screen 3.58
== END | disposition home or self-care (01) ==
LOC: BIMLAB 13:20
PROVIDERS: Physician Assistant Medical; PCP Internal Medicine; Referring Provider Internal Medicine; Visit Provider Internal Medicine
DX: Z00.00 Encounter for general adult medical examination without abnormal findings (principal); E78.00 Pure hypercholesterolemia, unspecified
CPT/HCPCS: 36415; 80048; 80061; 80076; 85025

== ENCOUNTER → 2024-09-01 | Outpatient (CLI) | payer OTHER, SELFPAY ==
[2024-09-01 11:14] LABS: AST(SGOT) 45 U/L (<=31); Alanine Aminotransfer ALT/SGPT 32 U/L (<=34); Albumin, Serum 4.5 g/dL (3.5-5.0); Alkaline Phosphatase 93 U/L (35-104); Anion Gap 11 (5-15); BUN 17 mg/dL (4-19); BUN/Creat Ratio 14.4 RATIO (10-20); Calcium,Total 9.9 mg/dL (7.6-11.0); Carbon Dioxide 24.0 mmol/L (21.0-32.0); Chloride 103 mmol/L (98-108); Globulin 2.9 g/dL (2.2-4.2); Glucose 97 mg/dL (70-99); Potassium 4.3 mmol/L (3.3-5.1)
== END | disposition home or self-care (01) ==
PROVIDERS: PCP Internal Medicine; Referring Provider Internal Medicine; Visit Provider Internal Medicine
DX: E78.5 Hyperlipidemia, unspecified (principal)
CPT/HCPCS: 36415; 80053

== ENCOUNTER → 2024-11-30 | Outpatient (CLI) | payer OTHER, SELFPAY ==
[2024-11-30 12:23] LABS: AST(SGOT) 35 U/L (<=31); Alanine Aminotransfer ALT/SGPT 31 U/L (<=34); Albumin, Serum 4.7 g/dL (3.5-5.0); Alkaline Phosphatase 82 U/L (35-104); Anion Gap 11 (5-15); BUN 16 mg/dL (4-19); BUN/Creat Ratio 15.6 RATIO (10-20); Calcium,Total 9.5 mg/dL (7.6-11.0); Carbon Dioxide 25.3 mmol/L (21.0-32.0); Chloride 102 mmol/L (98-108); Globulin 2.7 g/dL (2.2-4.2); Glucose 88 mg/dL (70-99); Potassium 3.9 mmol/L (3.3-5.1)
== END | disposition home or self-care (01) ==
PROVIDERS: PCP Internal Medicine; Referring Provider Internal Medicine; Visit Provider Internal Medicine
DX: I10 Essential (primary) hypertension (principal); E78.5 Hyperlipidemia, unspecified
CPT/HCPCS: 36415; 80053

== ENCOUNTER 2025-02-21 09:00 | Outpatient (RCR) | payer OTHER, SELFPAY ==
--- NOTE | 2024-09-15 15:27 | HP.PTEVAL_ITS ---
Patient's Visit Information Visit Information Visit Information: BRITTANY MAC is a 44 year old F referred to Physical Therapy by Dr. Chen Kelly MD with a diagnosis of Incontinence and urgency. Date of Evaluation: 09/15/24 Physical Therapist: Jacy Ross Visit Plan Frequency: 1x/Week Plan: Brittany would benefit from skilled PT intervention to address her incontinence and urinary frequency. She has moderate pelvic floor tightness which is likely contributing to her symptoms along with significant pelvic floor weakness. Continue 1 x week. Initiate pelvic floor strengthening once tightness more resolved. Started her on happy baby and deep breathing today. Continue pelvic floor releases (worse on left side). How is she doing with deep breathing? Discuss bladder irritants, water intake. Subjective Subjective: She is taking Gemtesa for urinary frequency problems and it has been a life changer and really helping. She was going 14 times a day. If she laughed too much , she would totally wet her pants. She uses a maxipad with doing jump roping at [employer] (but has gotten better). She used to leak with a cough or sneeze but not as much now. She leaks with jumping and running activities. She had her kids close together 2009 and June 2008. She started having recurring UTIs prior to her kids (she was put on antibiotic preventatively). Recently this past year, she had a really bad infection. 2023 first UTI hit, second one hit. Dr. Kelly has her UTIs under control now which she is really happy about. Now she is taking antibiotic at night after intercourse. Both deliveries were vaginal deliveries. Hematoma the size of a softball. Her biggest goal is to address the leakage. Bladder diagnostics were normal. Emptying normally. No difficulty with bowel movements or constipation. No pain with intercourse. 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 She is usually going every 90 minutes during the school day. She usually goes now 8 times a day (used to be 9-12 times a day). Before Gemtesa , she used to have urge incontinence. She used to leak with intercourse. Symptoms sometimes worsen with stress. She did a program with her insurance company for a year and a half to address her leaking but it didn't help. No complaints of pelvic pain, low back pain. Objective Objective: LAYJUSTICECK / Moderate pelvic floor tightness left side layer 2 Breathing mechanics- breathing mainly in her chest and bearing down into her pe lvic floor on exhale Hard to evaluate for prolapse as she had difficulty bearing down or leo her pelvic floor Incontinence impact questionnaire 5, Urogenital distress inventory 5 Goals Goal 1:: Brittany will be on a more normal voiding schedule of 5-7 times a day to allow for less disruption during day to day activities. Goal Time Frame: 4-6 Weeks Goal 2:: Brittany will be able to run or jump without leaking during her cross fit workouts. Goal Time Frame: 8-12 Weeks Rehabilitation Potential Physical Therapy Diagnosis: Stress Incontinence , Frequency of micturition Rehabilitation Potential: Good Anticipated Interventions Patient/Client Instruction: Educate patient on: Condition and Plan of Care For the Purpose of:: To improve muscle performance and motor function, To improve health and function and To improve self management Therapeutic Exercise to Include: Strength training, Neuromotor development and Relaxation training For the Purpose of:: To improve muscle performance and motor function and To improve health and function Manual Therapy Techniques to Include: Trigger point massage and Soft tissue mobilization For the Purpose of:: To improve muscle performance and motor function and To improve health and function Text: Thank you for the opportunity to evaluate your patient. For Medicare and Medicare HMO plans, please review the plan of care and approve it. It will need to be FAXED BACK to us at [phone] for Medicare purposes. For Medicare only, by signing this I certify the plan of care. Please let me know if there are questions or concerns regarding this plan of care. Physician Signature: Date:
--- NOTE | 2025-02-21 11:01 | HP.PTDCSUM ---
Discharge Summary D/C summary: It has been my pleasure to treat SACHIN MAC referred by Dr. Chen Kelly MD, with the diagnosis of Incontinence and urgency for a total of 11 visit(s). Discharge Date: Please see the following information for a summary of their discharge status. Subjective Subjective: She reports definite improvement in her incontinence and urgency since starting PT. Her incontinence varies though. There was a weekend away where she had increased leakage with playing pickle ball which was unusual for her recently as she has felt improvement in her incontinence overall since starting PT. Laughing on that same weekend away she noticed leakage as well. Urgency has significantly improved. 80% improved overall with her urgency. She gets up 2 x night to urinate but not in the middle of the night . Mostly occurs when she first lays down in bed and then she gets up again to go a second time as she still feels some urgency to go (she admits this is likely a habit). Overall Improvement % Improvement: 75 Objective Objective/Function: Sachin did well in PT reporting about 75% improvement overall in her leakage and urgency. She still has some days that are better than others but overall she feels improved control. She has met her max rehab potential at this time so we are discharging her from PT. She plans to continue the exercises on her own. Her pelvic floor contraction ability is still markedly limited and not much improvement since the initial evaluation. Goals Goal 1:: Sachin will be on a more normal voiding schedule of 5-7 times a day to allow for less disruption during day to day activities. 02/21/25 100% improved. Goal Progress: Goal Met Goal 2:: Sachin will be able to run or jump without leaking during her cross fit workouts. 02/21/25 She is now running vs. cross fit and she is not leaking with running. 80% improved. Plan Plan: D/C from PT D/C Information d/c sentence: If there are questions or concerns regarding this patient's physical therapy, please feel free to call me at [phone]. Thank you for the referral of this patient. Sincerely, Jacy Ross Balance/Gait/Functional tests Improvement % Improvement: 75
== END 2025-02-21 11:19 | disposition home or self-care (01) ==
LOC: PT 09:00
PROVIDERS: PCP Internal Medicine; Referring Provider Urology; Visit Provider Urology
DX: N39.41 Urge incontinence (principal)
CPT/HCPCS: 97110; 97112; 97140; 97162; 97530